=== PATIENT | female | born 1990 | race American Indian/Alaskan Native ===

== ENCOUNTER 2016-07-01 13:09 | Emergency (ER) | payer BC, MEDICAID ==
[2016-07-01 14:19] VITALS: BP 137/69
== END 2016-07-01 15:28 | disposition left against medical advice (07) ==
LOC: DL.ED 13:09
DX: Z53.21 Procedure and treatment not carried out due to patient leaving prior to being seen by health care provider (principal)

== ENCOUNTER 2016-07-01 19:06 | Emergency (ER) | payer MEDICAID ==
[2016-07-01 19:18] VITALS: BP 124/85
[2016-07-01] MEDS ORDERED: Acetaminophen/HYDROcodone 325-10 MG Tab PO ONE (20:04)
[2016-07-01] MEDS ORDERED: Acetaminophen/HYDROcodone 325-10 MG Tab ONE (20:04)
--- NOTE | 2016-07-01 20:04 | EDM.PDOC ---
ED HPI Trauma - General Chief Complaint: Lower Extremity Injury/Pain Stated Complaint: LEFT CONLEY PAIN, [id number] Time Seen by Provider: 07/01/16 20:00 Source: Reports: Patient History Limitations: Reports: No limitations - History of Present Illness INITIAL COMMENTS - FREE TEXT/NARRATIVE: injured last PM Allergies/ADRs: Allergies Penicillins Allergy (Verified 03/22/15 20:28) Swelling Home Medications: Ambulatory Orders Acetaminophen [Tylenol Extra Strength] 1,000 mg PO Q4HR PRN 04/03/14 [Confirmed 12/18/15] Ibuprofen 800 mg PO Q8HR 04/03/14 [Confirmed 12/18/15] Past Medical History - Past Health History Medical/Surgical History: Denies Medical/Surgical History HEENT History: Reports: None Cardiovascular History: Reports: None Respiratory History: Reports: None 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: Musculoskeletal History: Reports: None Neurological History: Reports: None Psychiatric History: Reports: None - Infectious Disease History Infectious Disease History: Reports: None - Past Surgical History Female Surgical History: Reports: section Social & Family History - Family History HEENT: Reports: None Cardiac: Reports: None Respiratory: Reports: None GI: Reports: None OBGYN: Reports: None Musculoskeletal: Reports: None - Tobacco Use Smoking Status *Q: Former Smoker Years of Tobacco use: 9 Packs/Tins Daily: 0.2 Used Tobacco, but Quit: Yes Month Tobacco Last Used: may Second Hand Smoke Exposure: Yes - Caffeine Use Caffeine Use: Reports: Soda - Alcohol Use Days Per Week of Alcohol Use: 0 - Recreational Drug Use Recreational Drug Use: No Recreational Drug Type: Reports: Marijuana/Hashish Recreational Drug Use Frequency: Socially Review of Systems - Review of Systems Review Of Systems: ROS reveals no pertinent complaints other than HPI. Trauma Exam - Physical Exam Exam: See Below Exam Limited By: No limitations General Appearance: Reports: alert, WD/WN, mild distress, other (tearful) Head: Reports: atraumatic Ears: Reports: hearing grossly normal Throat/Mouth: Reports: Normal voice, No airway compromise Neck: Reports: non-tender, full range of motion Respiratory Exam: Reports: no respiratory distress Cardiovascular: Reports: regular rate, rhythm GI/Abdominal: Reports: soft, non tender Extremities: Reports: pain with movement, tenderness, other (left conley mild swelling, no gross D/D, NV wnl, gait limited to pain) Neurologic: Reports: no motor/sensory deficits, alert, oriented x 3 Skin: Reports: Normal color, Warm/dry Course - Vital Signs Last Recorded V/S: Last Vital Signs Temp 36.2 C 07/01/16 19:14 Pulse 88 07/01/16 19:14 Resp 18 07/01/16 19:14 BP 124/85 07/01/16 19:14 Pulse Ox 100 07/01/16 19:14 - Orders/Labs/Meds Meds: Medications Discontinued Medications Generic Name Dose Route Start Last Admin Trade Name [place] PRN Reason Stop Dose Admin Hydrocodone Bitart/Acetaminophen Confirm 07/01/16 20:04 [facility] 325-10 Mg Administered 07/01/16 20:05 Dose 1 tab .ROUTE .STK-MED ONE - Re-Assessments/Exams Free Text/Narrative Re-Assessment/Exam: 07/01/16 20:02 results discussed with Pt. Departure - Departure Time of Disposition: 20:19 Disposition: Home, Self-Care 01 Condition: good Clinical Impression: Contusion of left tibia Instructions: Contusion, [id number] Forms: ED Department Discharge Additional Instructions: 1) elevate leg as much as possible next 48 hours 2) ice intermittently for swelling 3) follow up at clinic or recheck as needed rx togo: norco x 1
== END 2016-07-01 20:21 | disposition home or self-care (01) ==
LOC: DL.ED 19:06
DX: S80.12XA Contusion of left lower leg, initial encounter (principal); Z88.0 Allergy status to penicillin; Z87.891 Personal history of nicotine dependence; W22.8XXA Striking against or struck by other objects, initial encounter
CPT/HCPCS: 73590-LT; 99283; A9270-GY

== ENCOUNTER 2017-06-16 10:55 | Emergency (ER) | payer MEDICAID ==
[2017-06-16] MEDS ORDERED: Polymyxin B/Trimethoprim 10 ML Bottle EYEBOTH ONE (10:56)
[2017-06-16 11:10] VITALS: BP 114/67
[2017-06-16] MEDS ORDERED: Polymyxin B/Trimethoprim 10 ML Bottle ONE (11:36)
--- NOTE | 2017-06-16 11:40 | EDM.PDOC ---
Scribed by Cira Damian 06/16/17 1140 for Sushil Mars PA ED HPI GENERAL MEDICAL PROBLEM - General Chief Complaint: Eye Problems Stated Complaint: EYE PROBLEM [id number] Time Seen by Provider: 06/16/17 11:29 Source of Information: Reports: Patient, RN, RN Notes Reviewed History Limitations: Reports: No Limitations - History of Present Illness INITIAL COMMENTS - FREE TEXT/NARRATIVE: Patient states her left lower eye started hurting 5 days ago. She has had some eye drainage the last 2 nights. She has done nothing to make the symptoms better or worse. Onset: Gradual Location: Reports: Other (left eye) Quality: Reports: Ache Severity: Mild Improves with: Reports: None Worsens with: Reports: None Associated Symptoms: Reports: No Other Symptoms - Related Data Allergies Allergy/AdvReac Type Severity Reaction Status Date / Time Penicillins Allergy Swelling Verified 06/16/17 11:10 Home Meds: Home Meds Acetaminophen [Tylenol Extra Strength] 1,000 mg PO Q4HR PRN 04/03/14 [History] Ibuprofen 800 mg PO Q8HR 04/03/14 [History] Past Medical History - Past Health History Medical/Surgical History: Denies Medical/Surgical History HEENT History: Reports: None Cardiovascular History: Reports: None Respiratory History: Reports: None Gastrointestinal History: Reports: None Genitourinary History: Reports: None 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: Musculoskeletal History: Reports: None Neurological History: Reports: None Psychiatric History: Reports: None Endocrine/Metabolic History: Reports: None Hematologic History: Reports: None Immunologic History: Reports: None Oncologic (Cancer) History: Reports: None Dermatologic History: Reports: None - Infectious Disease History Infectious Disease History: Reports: None - Past Surgical History Head Surgeries/Procedures: Reports: None Female Surgical History: Reports: Section Social & Family History - Family History HEENT: Reports: None Cardiac: Reports: None Respiratory: Reports: None GI: Reports: None OBGYN: Reports: None Musculoskeletal: Reports: None - Tobacco Use Smoking Status *Q: Never Smoker Years of Tobacco use: 9 Packs/Tins Daily: 0.2 Used Tobacco, but Quit: Yes Month/Year Tobacco Last Used: may Second Hand Smoke Exposure: No - Caffeine Use Caffeine Use: Reports: Soda, Tea - Alcohol Use Days Per Week of Alcohol Use: 0 - Recreational Drug Use Recreational Drug Use: No Recreational Drug Type: Reports: Marijuana/Hashish Recreational Drug Use Frequency: Socially ED ROS GENERAL - Review of Systems Review Of Systems: ROS reveals no pertinent complaints other than HPI. ED EXAM GENERAL W FULL EYE - Physical Exam Exam: See Below Exam Limited By: No Limitations General Appearance: Alert, WD/WN, No Apparent Distress Eye Exam: Left Eye: Other (left lower stye.) Ears: Normal External Exam, Normal Canal, Hearing Grossly Normal, Normal TMs Nose: Normal Inspection, Normal Mucosa, No Blood Throat/Mouth: Normal Inspection, Normal Lips, Normal Teeth, Normal Gums, Normal Oropharynx, Normal Voice, No Airway Compromise Head: Atraumatic, Normocephalic Neck: Normal Inspection, Supple, Non-Tender, Full Range of Motion Respiratory/Chest: No Respiratory Distress, Lungs Clear, Normal Breath Sounds, No Accessory Muscle Use, Chest Non-Tender Cardiovascular: Normal Peripheral Pulses, Regular Rate, Rhythm, No Edema, No Gallop, No JVD, No Murmur, No Rub GI/Abdominal: Normal Bowel Sounds, Soft, Non-Tender, No Organomegaly, No Distention, No Abnormal Bruit, No Mass (Male) Exam: Deferred (Female) Exam: Deferred Rectal (Males) Exam: Normal Exam, Normal Rectal Tone, Prostate Normal Rectal (Female) Exam: Normal Exam, Normal Rectal Tone Back Exam: Normal Inspection, Full Range of Motion, NT Extremities: Normal Inspection, Normal Range of Motion, Non-Tender, Normal Capillary Refill, No Pedal Edema Neurological: Alert, Oriented, CN II-XII Intact, Normal Cognition, Normal Gait, Normal Reflexes, No Motor/Sensory Deficits Psychiatric: Normal Affect, Normal Mood Skin Exam: Warm, Dry, Intact, Normal Color, No Rash Lymphatic: No Adenopathy Course - Vital Signs Last Recorded V/S: Last Vital Signs Temp 36.3 C 06/16/17 11:05 Pulse 80 06/16/17 11:05 Resp 16 06/16/17 11:05 BP 114/67 06/16/17 11:05 Pulse Ox 100 06/16/17 11:05 - Orders/Labs/Meds Meds: Medications Discontinued Medications Generic Name Dose Route Start Last Admin Trade Name Freq PRN Reason Stop Dose Admin Polymyxin/Trimethoprim Sulfate Confirm 06/16/17 11:36 Polytrim Ophth Soln Administered 06/16/17 11:37 Dose 10 ml .ROUTE .STK-MED ONE Departure - Departure Time of Disposition: 11:38 Disposition: Home, Self-Care 01 Condition: Good Clinical Impression: Hordeolum externum (stye) - Discharge Information Instructions: Stye Forms: ED Department Discharge Additional Instructions: RX: Polytrim eye drops, one drop in each eye for 7 days. IF not improved follow up in clinic with your primary care facility. I have read and agree with the documentation that has been completed regarding this visit. By signing this record, I attest that the documentation was completed in my physical presence and is an accurate record of the encounter.
== END 2017-06-16 11:50 | disposition home or self-care (01) ==
LOC: DL.ED 10:55
DX: H00.025 Hordeolum internum left lower eyelid (principal); Z87.891 Personal history of nicotine dependence; Z88.0 Allergy status to penicillin
CPT/HCPCS: 99283; A9270

== ENCOUNTER 2017-07-29 18:05 | Emergency (ER) | payer MEDICAID ==
[2017-07-29 18:32] VITALS: BP 140/77
== END 2017-07-29 19:00 | disposition left against medical advice (07) ==
LOC: DL.ED 18:05
DX: Z53.21 Procedure and treatment not carried out due to patient leaving prior to being seen by health care provider (principal)

== ENCOUNTER 2017-11-15 11:00 | Emergency (ER) | payer MEDICAID ==
[2017-11-15 11:21] VITALS: BP 136/92
--- NOTE | 2017-11-15 11:35 | EDM.PDOC ---
<Tracey Thornton - Last Filed: 11/15/17 12:53> ED HPI GENERAL MEDICAL PROBLEM - General Chief Complaint: Back Pain or Injury Stated Complaint: LOWER BACK Time Seen by Provider: 11/15/17 11:23 Source of Information: Reports: Patient, RN, RN Notes Reviewed History Limitations: Reports: No Limitations - History of Present Illness INITIAL COMMENTS - FREE TEXT/NARRATIVE: Pt presents to the ER with c/o pain to the low back, radiating into the right hip, and down the right leg. Patient states her son jumped on her back and leaned backwards, hurting her back. This occurred about 2-3 days ago. Patient denies any urinary symptoms. Admits to fever and chills, nausea. Denies diarrhea , CP, or SOB. Patient denies chances of . Denies constipation or bowel issues. Patient rates pain 10/10. Pt states she has been taking Tylenol with aspirin without relief. Pain is lessened when laying down, but very painful with sitting, standing, and walking. Onset: Gradual Bilateral Lower Back Pain Score (Numeric/FACES): 10 - Related Data Allergies Allergy/AdvReac Type Severity Reaction Status Date / Time Penicillins Allergy Swelling Verified 11/15/17 11:16 Home Meds: Home Meds Acetaminophen [Tylenol Extra Strength] 1,000 mg PO Q4HR PRN 04/03/14 [History] Ibuprofen 800 mg PO Q8HR 04/03/14 [History] Past Medical History - Past Health History Medical/Surgical History: Denies Medical/Surgical History HEENT History: Reports: None Cardiovascular History: Reports: None Respiratory History: Reports: None Gastrointestinal History: Reports: None Genitourinary History: Reports: None 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: Musculoskeletal History: Reports: None Neurological History: Reports: None Psychiatric History: Reports: None Endocrine/Metabolic History: Reports: None Hematologic History: Reports: None Immunologic History: Reports: None Oncologic (Cancer) History: Reports: None Dermatologic History: Reports: None - Infectious Disease History Infectious Disease History: Reports: None - Past Surgical History Head Surgeries/Procedures: Reports: None Female Surgical History: Reports: Section Social & Family History - Family History HEENT: Reports: None Cardiac: Reports: None Respiratory: Reports: None GI: Reports: None OBGYN: Reports: None Musculoskeletal: Reports: None - Tobacco Use Smoking Status *Q: Never Smoker - Caffeine Use Caffeine Use: Reports: Coffee, Energy Drinks, Soda - Recreational Drug Use Recreational Drug Use: No ED ROS GENERAL - Review of Systems Review Of Systems: ROS reveals no pertinent complaints other than HPI. ED EXAM,LOWER BACK PAIN/INJURY - Physical Exam Exam: See Below Exam Limited By: No Limitations General Appearance: Alert, WD/WN, Moderate Distress Eye Exam: Bilateral Eye: EOMI, Normal Inspection Ears: Normal External Exam, Hearing Grossly Normal Nose: Normal Inspection Throat/Mouth: Normal Inspection, Normal Voice, No Airway Compromise Head: Atraumatic, Normocephalic Neck: Normal Inspection, Supple, Non-Tender, Full Range of Motion Respiratory/Chest: No Respiratory Distress, Lungs Clear, Normal Breath Sounds, No Accessory Muscle Use, Chest Non-Tender Cardiovascular: Normal Peripheral Pulses, Regular Rate, Rhythm, No Edema, No Gallop, No JVD, No Murmur, No Rub GI/Abdominal: Normal Bowel Sounds, Soft, Non-Tender (Female) Exam: Deferred Rectal (Female) Exam: Deferred Back Exam: Normal Inspection, CVA Tenderness (R), Decreased Range of Motion, Paraspinal Tenderness, Vertebral Tenderness. No: CVA Tenderness (L) Extremities: Normal Inspection, Normal Range of Motion, Non-Tender, No Pedal Edema, Normal Capillary Refill Neurological: Alert, Normal Mood/Affect, Normal Dorsiflexion, CN II-XII Intact, Normal Plantar Flexion, Normal Gait, Normal Reflexes, No Motor/Sensory Deficits , Oriented x 3 Psychiatric: Anxious, Tearful Skin Exam: Warm, Dry, Intact, Normal Color, No Rash Lymphatic: No Adenopathy Course - Vital Signs Last Recorded V/S: Last Vital Signs Temp 37.3 C 11/15/17 11:20 Pulse 109 H 11/15/17 11:20 Resp 16 11/15/17 11:20 BP 136/92 H 11/15/17 11:20 Pulse Ox 100 11/15/17 11:20 - Orders/Labs/Meds Labs: Laboratory Tests 11/15/17 11/15/17 Range/Units 11:17 11:17 Urine Color Yellow (YELLOW) Urine Appearance Slightly cloudy (CLEAR) Urine pH 6.0 (5.0-9.0) Ur Specific [place] 1.020 (1.005-1.030) Urine Protein Negative (NEGATIVE) Urine Glucose (UA) Negative (NEGATIVE) Urine Ketones Negative (NEGATIVE) Urine Occult Blood Negative (NEGATIVE) Urine Nitrite Negative (NEGATIVE) Urine Bilirubin Negative (NEGATIVE) Urine Urobilinogen 0.2 (0.2-1.0) mg/dL Ur Leukocyte Esterase Negative (NEGATIVE) Urine RBC 0-5 /HPF Urine WBC 0-5 (0-5/HPF) /HPF Ur Epithelial Cells Many H /HPF Urine Bacteria Many H (0-FEW/HPF) /HPF Urine Mucus Moderate H /LPF Urinalysis Comment Urine HCG, Qual Negative Meds: Medications Discontinued Medications Generic Name Dose Route Start Last Admin Trade Name Freq PRN Reason Stop Dose Admin Ketorolac Tromethamine 60 mg 11/15/17 12:04 11/15/17 12:12 Toradol IM 11/15/17 12:05 60 mg ONETIME ONE Administration Methylprednisolone Sodium Succinate 125 mg 11/15/17 12:04 11/15/17 12:12 Solu-Medrol IM 11/15/17 12:05 125 mg ONETIME ONE Administration - Radiology Interpretation Free Text/Narrative:: Lumbar spine xray: See rad report Departure - Departure Disposition: Home, Self-Care 01 Clinical Impression: Bacterial vaginosis Low back pain Qualifiers: Chronicity: acute Back pain laterality: right Sciatica presence: with sciatica Sciatica laterality: sciatica of right side Qualified Code(s): M54.41 - Lumbago with sciatica, right side - Discharge Information Instructions: Bacterial Vaginosis, [id number], Back Injury Prevention, Easy- to-Read, Back Pain, Adult, [id number] Forms: ED Department Discharge Care Plan Goals: The patient was advised of the examination, lab and x-ray results during the visit. The patient was given an antiinflammatory medication and a steroid while in the ED. The patient was given a script of antibiotics for urinary tract infection. If the patient has any additional symptoms or concerns, the patient should follow-up with her primary care facility or return to the emergency department. <Sushil Mars - Last Filed: 11/15/17 13:04> Departure - Departure Time of Disposition: 13:00 Condition: Fair - Discharge Information *PRESCRIPTION DRUG MONITORING PROGRAM REVIEWED*: Not Applicable *COPY OF PRESCRIPTION DRUG MONITORING REPORT IN PATIENT NGUYEN: Not Applicable
[2017-11-15] MEDS ORDERED: methylPREDNISolone Sodium Succinate 125 MG/2 ML SDV IM ONE (12:04)
[2017-11-15] MEDS ORDERED: Ketorolac 30 MG/ML SDV IM ONE (12:04)
== END 2017-11-15 13:09 | disposition home or self-care (01) ==
LOC: DL.ED 11:00
DX: M54.41 Lumbago with sciatica, right side (principal); N76.0 Acute vaginitis; Z88.0 Allergy status to penicillin
CPT/HCPCS: 72100; 81001; 81025; 96372; 99283; J1885; J2930

== ENCOUNTER 2018-04-30 08:27 | Emergency (ER) | payer MEDICAID ==
--- NOTE | 2018-04-30 08:39 | EDM.PDOC ---
ED HPI GENERAL MEDICAL PROBLEM - General Chief Complaint: ENT Problem Stated Complaint: THROAT HURTS [id number] Time Seen by Provider: 04/30/18 08:39 Source of Information: Reports: Patient, RN, RN Notes Reviewed History Limitations: Reports: No Limitations - History of Present Illness INITIAL COMMENTS - FREE TEXT/NARRATIVE: Pt to ER with c/o throat pain and some pain in the upper mid-chest. Patient states the throat pain has been present for 3 days. She states the pain in the chest began last night. She admits to a cough with some productive white sputum. Patient denies fever, vomiting, or diarrhea. Admits to chills, and nausea at times. Onset: Gradual Onset Date: 04/27/18 Bilateral Throat Pain Score (Numeric/FACES): 3 - Related Data Allergies Allergy/AdvReac Type Severity Reaction Status Date / Time Penicillins Allergy Swelling Verified 11/15/17 11:16 Home Meds: Home Meds Acetaminophen [Tylenol Extra Strength] 1,000 mg PO Q4HR PRN 04/03/14 [History] Ibuprofen 800 mg PO Q8HR 04/03/14 [History] Past Medical History - Past Health History Medical/Surgical History: Denies Medical/Surgical History HEENT History: Reports: None Cardiovascular History: Reports: None Respiratory History: Reports: None Gastrointestinal History: Reports: None Genitourinary History: Reports: None 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: Musculoskeletal History: Reports: None Neurological History: Reports: None Psychiatric History: Reports: None Endocrine/Metabolic History: Reports: None Hematologic History: Reports: None Immunologic History: Reports: None Oncologic (Cancer) History: Reports: None Dermatologic History: Reports: None - Infectious Disease History Infectious Disease History: Reports: None - Past Surgical History Head Surgeries/Procedures: Reports: None Female Surgical History: Reports: Section Social & Family History - Family History HEENT: Reports: None Cardiac: Reports: None Respiratory: Reports: None GI: Reports: None OBGYN: Reports: None Musculoskeletal: Reports: None - Caffeine Use Caffeine Use: Reports: Coffee, Energy Drinks, Soda ED ROS ENT - Review of Systems Review Of Systems: ROS reveals no pertinent complaints other than HPI. ED EXAM, ENT - Physical Exam Exam: See Below Exam Limited By: No Limitations General Appearance: Alert, WD/WN, No Apparent Distress Eye Exam: Bilateral Eye: EOMI, Normal Inspection Ears: Normal External Exam, Hearing Grossly Normal Nose: Normal Inspection Mouth/Throat: Hoarse Voice, Pharyngeal Erythema, Tonsillar Erythema, Tonsillar Swelling Head: Atraumatic, Normocephalic Neck: Normal Inspection, Supple, Non-Tender, Full Range of Motion Respiratory/Chest: No Respiratory Distress, Lungs Clear, Normal Breath Sounds, No Accessory Muscle Use, Chest Non-Tender Cardiovascular: Normal Peripheral Pulses, Regular Rate, Rhythm, No Edema, No Gallop, No JVD, No Murmur, No Rub GI/Abdominal: Normal Bowel Sounds, Soft, Non-Tender, No Organomegaly, No Distention, No Abnormal Bruit, No Mass (Female) Exam: Deferred Rectal (Female) Exam: Deferred Back: Normal Inspection, Full Range of Motion Extremities: Normal Inspection, Normal Range of Motion, Non-Tender, No Pedal Edema, Normal Capillary Refill Neurological: Alert, Oriented, CN II-XII Intact, Normal Cognition, Normal Gait, Normal Reflexes, No Motor/Sensory Deficits Psychiatric: Normal Mood, Flat Affect Skin: Warm, Dry, Intact, Normal Color, No Rash Lymphatic: No Adenopathy Course - Vital Signs Last Recorded V/S: Last Vital Signs Temp 97.9 F 04/30/18 08:43 Pulse 84 04/30/18 08:43 Resp 18 04/30/18 08:43 BP 136/80 04/30/18 08:43 Pulse Ox 99 04/30/18 08:43 - Orders/Labs/Meds Orders: Active Orders 24 hr Category Date Time Status CULTURE STREP A CONFIRMATION [] Stat Lab 04/30/18 08:35 Results STREP SCRN A RAPID W CULT CONF [] Stat Lab 04/30/18 08:35 Results Labs: Rapid Strep: Negative Influenza A: Negative Influenza B: Negative Departure - Departure Time of Disposition: 09:17 Disposition: Home, Self-Care 01 Condition: Fair Clinical Impression: Laryngitis Upper respiratory infection Qualifiers: URI type: unspecified viral URI Qualified Code(s): J06.9 - Acute upper respiratory infection, unspecified - Discharge Information *PRESCRIPTION DRUG MONITORING PROGRAM REVIEWED*: No *COPY OF PRESCRIPTION DRUG MONITORING REPORT IN PATIENT NGUYEN: No Instructions: Laryngitis, [id number], Upper Respiratory Infection, Adult, [id number], Cool Mist Vaporizer, Cough, Adult, [id number] Forms: ED Department Discharge Additional Instructions: Drink plenty of water May use Tylenol and/or Ibuprofen as directed for pain/fever May use over the counter mucolytics and decongestants such as Mucinex, Zyrtec, Claritin May use over the counter Robitussin for cough as directed Follow up with your primary care facility - My Orders Last 24 Hours: My Active Orders 04/30/18 08:35 CULTURE STREP A CONFIRMATION [RM] Stat STREP SCRN A RAPID W CULT CONF [] Stat - Assessment/Plan Last 24 Hours: My Active Orders 04/30/18 08:35 CULTURE STREP A CONFIRMATION [RM] Stat STREP SCRN A RAPID W CULT CONF [] Stat
[2018-04-30 08:50] VITALS: BP 136/80
== END 2018-04-30 09:35 | disposition home or self-care (01) ==
LOC: DL.ED 08:27
DX: J04.0 Acute laryngitis (principal); Z88.0 Allergy status to penicillin
CPT/HCPCS: 87081; 87430; 87804; 99282

== ENCOUNTER 2018-11-27 09:57 | Emergency (ER) | payer MEDICAID ==
[2018-11-27 10:09] VITALS: BP 130/69; PULSE 93
--- NOTE | 2018-11-27 10:12 | EDM.PDOC ---
ED HPI GENERAL MEDICAL PROBLEM - General Chief Complaint: General Stated Complaint: SWOLLEN ON RIGHT SIDE OF FACE Time Seen by Provider: 11/27/18 10:12 Source of Information: Reports: Patient, RN, RN Notes Reviewed History Limitations: Reports: No Limitations - History of Present Illness INITIAL COMMENTS - FREE TEXT/NARRATIVE: Patient to the ER with c/o right sided facial swelling, getting worse over the past few days. Pt states she has molars on the right side, upper and lower, that have been giving her pain. States she has called to make dental appts but are booked so far out, does not have a ride to [email or web address] for walk in dentist. Pt admits to chills. Rates pain 6-7/10. Onset: Gradual Right Face/Facial Pain Score (Numeric/FACES): 6 - Related Data Allergies Allergy/AdvReac Type Severity Reaction Status Date / Time Penicillins Allergy Swelling Verified 11/27/18 10:07 Home Meds: Home Meds Acetaminophen [Tylenol Extra Strength] 1,000 mg PO Q4HR PRN 04/03/14 [History] Ibuprofen 800 mg PO Q8HR 04/03/14 [History] Past Medical History - Past Health History Medical/Surgical History: Denies Medical/Surgical History HEENT History: Reports: None Cardiovascular History: Reports: None Respiratory History: Reports: None Gastrointestinal History: Reports: None Genitourinary History: Reports: None 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: Musculoskeletal History: Reports: None Neurological History: Reports: None Psychiatric History: Reports: None Endocrine/Metabolic History: Reports: None Hematologic History: Reports: None Immunologic History: Reports: None Oncologic (Cancer) History: Reports: None Dermatologic History: Reports: None - Infectious Disease History Infectious Disease History: Reports: None - Past Surgical History Head Surgeries/Procedures: Reports: None Female Surgical History: Reports: Section Social & Family History - Family History Family Medical History: Noncontributory HEENT: Reports: None Cardiac: Reports: None Respiratory: Reports: None GI: Reports: None OBGYN: Reports: None Musculoskeletal: Reports: None - Tobacco Use Smoking Status *Q: Current Every Day Smoker Years of Tobacco use: 5 Packs/Tins Daily: 0.5 - Caffeine Use Caffeine Use: Reports: Coffee, Soda - Recreational Drug Use Recreational Drug Use: No ED ROS GENERAL - Review of Systems Review Of Systems: ROS reveals no pertinent complaints other than HPI. ED EXAM, GENERAL - Physical Exam Exam: See Below Exam Limited By: No Limitations General Appearance: Alert, WD/WN, Mild Distress Eye Exam: Bilateral Eye: EOMI, Normal Inspection Ears: Normal External Exam, Normal Canal, Hearing Grossly Normal, Normal TMs Nose: Normal Inspection Throat/Mouth: Normal Voice, No Airway Compromise, Other (erythema to the gums, upper and lower, right side. dental caries noted) Head: Atraumatic, Normocephalic Neck: Normal Inspection, Supple, Non-Tender, Full Range of Motion Respiratory/Chest: No Respiratory Distress, Lungs Clear, Normal Breath Sounds, No Accessory Muscle Use, Chest Non-Tender Cardiovascular: Normal Peripheral Pulses, Regular Rate, Rhythm, No Edema, No Gallop, No JVD, No Murmur, No Rub GI/Abdominal: Normal Bowel Sounds, Soft, Non-Tender, No Organomegaly, No Distention, No Abnormal Bruit, No Mass (Female) Exam: Deferred Rectal (Female) Exam: Deferred Back Exam: Normal Inspection Extremities: Normal Inspection, Normal Range of Motion, Non-Tender, Normal Capillary Refill, No Pedal Edema Neurological: Alert, Oriented, CN II-XII Intact, Normal Cognition, Normal Gait, Normal Reflexes, No Motor/Sensory Deficits Psychiatric: Normal Affect, Normal Mood Skin Exam: Warm, Dry, Intact, Normal Color, No Rash Lymphatic: Adenopathy (right anterior cervical, right pre and post auricular) Course - Vital Signs Last Recorded V/S: Last Vital Signs Temp 97.2 F 11/27/18 10:03 Pulse 93 11/27/18 10:03 Resp 16 11/27/18 10:03 BP 130/69 11/27/18 10:03 Pulse Ox 100 11/27/18 10:03 Departure - Departure Time of Disposition: 10:20 Disposition: Home, Self-Care 01 Condition: Fair Clinical Impression: Dental abscess - Discharge Information *PRESCRIPTION DRUG MONITORING PROGRAM REVIEWED*: No *COPY OF PRESCRIPTION DRUG MONITORING REPORT IN PATIENT NGUYEN: No Instructions: Dental Abscess, [id number] Forms: ED Department Discharge Additional Instructions: RX: Clindamycin Follow up with dentistry May use Ibuprofen as directed for pain/fever May use heat pack to the area as tolerated Swish with mouthwash 2-3 times daily
== END 2018-11-27 10:26 | disposition home or self-care (01) ==
LOC: DL.ED 09:57
DX: K04.7 Periapical abscess without sinus (principal); K02.9 Dental caries, unspecified; F17.210 Nicotine dependence, cigarettes, uncomplicated; Z88.0 Allergy status to penicillin
CPT/HCPCS: 99282

== ENCOUNTER 2019-02-18 08:19 | Emergency (ER) | payer MEDICAID ==
--- NOTE | 2019-02-18 08:51 | EDM.PDOC ---
ED HPI GENERAL MEDICAL PROBLEM - General Chief Complaint: Gastrointestinal Problem Stated Complaint: THROWING UP/DIARRHEA Time Seen by Provider: 02/18/19 08:50 Source of Information: Reports: Patient, RN, RN Notes Reviewed History Limitations: Reports: No Limitations - History of Present Illness INITIAL COMMENTS - FREE TEXT/NARRATIVE: patient presents to ER with complaint of nausea, vomiting, and diarrhea. Patient states started suddenly about 10 or 10:30 PM last night, and lasted until 4/4:30 AM today. Patient states the vomiting and diarrhea has not occurred since 4:30 AM, but she is still unable to keep water down when she tries to drink. Patient denies any nausea at this time, complains of a burning in her stomach and throat. Denies fever, admits to chills. States she last had a chicken sandwich from [employer] last evening followed by popcorn. Patient's denies any chances of .denies urinary symptoms, frequency, urgency, burning with urination. Denies cough. Onset: Today, Sudden Abdominal Pain Score (Numeric/FACES): 3 - Related Data Allergies Allergy/AdvReac Type Severity Reaction Status Date / Time Penicillins Allergy Swelling Verified 02/18/19 08:25 Home Meds: Home Meds Acetaminophen [Tylenol Extra Strength] 1,000 mg PO Q4HR PRN 04/03/14 [History] Ibuprofen 800 mg PO Q8HR 04/03/14 [History] Past Medical History - Past Health History Medical/Surgical History: Denies Medical/Surgical History HEENT History: Reports: None Cardiovascular History: Reports: None Respiratory History: Reports: None Gastrointestinal History: Reports: None Genitourinary History: Reports: None 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: Musculoskeletal History: Reports: None Neurological History: Reports: None Psychiatric History: Reports: None Endocrine/Metabolic History: Reports: None Hematologic History: Reports: None Immunologic History: Reports: None Oncologic (Cancer) History: Reports: None Dermatologic History: Reports: None - Infectious Disease History Infectious Disease History: Reports: None - Past Surgical History Head Surgeries/Procedures: Reports: None Female Surgical History: Reports: Section Social & Family History - Family History Family Medical History: Noncontributory HEENT: Reports: None Cardiac: Reports: None Respiratory: Reports: None GI: Reports: None OBGYN: Reports: None Musculoskeletal: Reports: None - Tobacco Use Smoking Status *Q: Never Smoker Second Hand Smoke Exposure: No - Caffeine Use Caffeine Use: Reports: Coffee - Recreational Drug Use Recreational Drug Use: No ED ROS GENERAL - Review of Systems Review Of Systems: Comprehensive ROS is negative, except as noted in HPI. ED EXAM, GI/ABD - Physical Exam Exam: See Below Exam Limited By: No Limitations General Appearance: Alert, WD/WN, Mild Distress Eyes: Bilateral: Normal Appearance, EOMI Ears: Normal External Exam, Hearing Grossly Normal Nose: Normal Inspection Throat/Mouth: Normal Inspection, Normal Voice, No Airway Compromise Head: Atraumatic, Normocephalic Neck: Normal Inspection, Supple, Non-Tender, Full Range of Motion Respiratory/Chest: No Respiratory Distress, Lungs Clear, Normal Breath Sounds, No Accessory Muscle Use, Chest Non-Tender Cardiovascular: Normal Peripheral Pulses, Regular Rate, Rhythm, No Edema, No Gallop, No JVD, No Murmur, No Rub GI/Abdominal Exam: Normal Bowel Sounds, Soft, Tender (Female) Exam: Deferred Rectal (Female) Exam: Deferred Back Exam: Normal Inspection, Full Range of Motion, NT Extremities: Normal Inspection, Normal Range of Motion, Non-Tender, Normal Capillary Refill, No Pedal Edema Neurological: Alert, Oriented, CN II-XII Intact, Normal Cognition, Normal Gait, Normal Reflexes, No Motor/Sensory Deficits Psychiatric: Normal Affect, Normal Mood Skin Exam: Warm, Dry, Intact, Normal Color, No Rash Lymphatic: No Adenopathy Course - Vital Signs Last Recorded V/S: Last Vital Signs Temp 97.6 F 02/18/19 08:26 Pulse 110 H 02/18/19 08:26 Resp 16 02/18/19 08:26 BP 129/87 02/18/19 08:26 Pulse Ox 100 02/18/19 08:26 - Orders/Labs/Meds Orders: Active Orders 24 hr Category Date Time Status Peripheral IV Care [RC] . DIRECTED Care 02/18/19 08:58 Active Sodium Chloride 0.9% [Saline Flush] Med 02/18/19 08:58 Active 10 ml FLUSH ASDIRECTED PRN Peripheral IV Insertion Adult [OM.PC] Stat Oth 02/18/19 08:57 Ordered Medication Orders Sodium Chloride (Saline Flush) 10 ml FLUSH ASDIRECTED PRN PRN Reason: Keep Vein Open Last Admin: 02/18/19 09:25 Dose: 10 ml Labs: Laboratory Tests 02/18/19 02/18/19 Range/Units 09:14 09:55 WBC 9.7 (5.0-10.0) 10^3/uL RBC 4.96 (4.2-5.4) 10^6/uL Hgb 14.5 (12.0-16.0) g/dL Hct 44.0 (37.0-47.0) % MCV 88.7 D (80-100) fL MCH 29.2 (27.0-34.0) pg MCHC 33.0 (33.0-35.0) g/dL Plt Count 251 (150-450) 10^3/uL Neut % (Auto) 86.6 H (42.2-75.2) % Lymph % (Auto) 7.9 L (20.5-50.1) % [place] % (Auto) 4.0 (2-8) % Eos % (Auto) 1.4 (1.0-3.0) % Baso % (Auto) 0.1 (0.0-1.0) % Sodium 140 (135-145) mmol/L Potassium 3.5 L (3.6-5.0) mmol/L Chloride 108 (101-111) mmol/L Carbon Dioxide 22.0 (21.0-31.0) mmol/L Anion Gap 13.5 BUN 15 (7-18) mg/dL Creatinine 0.7 (0.6-1.3) mg/dL Est Cr Clr Drug Dosing 120.70 mL/min Estimated GFR (MDRD) > 60 BUN/Creatinine Ratio 21.42 Glucose 138 H (74-105) mg/dL Calcium 8.5 (8.4-10.2) mg/dl Total Bilirubin 0.8 (0.2-1.0) mg/dL AST 61 H (10-42) IU/L ALT 157 H (10-60) IU/L Alkaline Phosphatase 81 (42-121) IU/L Total Protein 7.4 (6.7-8.2) g/dl Albumin 4.0 (3.2-5.5) g/dl Globulin 3.4 Albumin/Globulin Ratio 1.18 Meds: Medications Generic Name Dose Route Start Last Admin Trade Name Freq PRN Reason Stop Dose Admin Sodium Chloride 10 ml 02/18/19 08:58 02/18/19 09:25 Saline Flush FLUSH 10 ml ASDIRECTED PRN Administration Keep Vein Open Discontinued Medications Generic Name Dose Route Start Last Admin Trade Name [place] PRN Reason Stop Dose Admin Al Hydroxide/Mg Hydroxide 30 ml 02/18/19 08:58 02/18/19 09:23 Gi Cocktail PO 02/18/19 08:59 30 ml ONETIME ONE Administration Sodium Chloride 1,000 mls @ 999 mls/hr 02/18/19 08:58 02/18/19 09:21 Normal Saline IV 02/18/19 09:58 999 mls/hr .BOLUS ONE Administration Ondansetron HCl 4 mg 02/18/19 08:58 02/18/19 09:23 Zofran IV 02/18/19 08:59 4 mg ONETIME ONE Administration Departure - Departure Time of Disposition: 11:07 Disposition: Home, Self-Care 01 Condition: Fair Clinical Impression: Gastroenteritis - Discharge Information *PRESCRIPTION DRUG MONITORING PROGRAM REVIEWED*: No *COPY OF PRESCRIPTION DRUG MONITORING REPORT IN PATIENT NGUYEN: No Instructions: Viral Gastroenteritis, Adult, [id number], Diarrhea, Adult, Easy -to-Read, Food Poisoning, [id number], Nausea and Vomiting, Adult, [id number] Forms: ED Department Discharge Additional Instructions: Small sips of fluids frequently take nausea medication as prescribed Follow-up with your primary care provider in the clinic to have liver enzymes rechecked. Return to the ER with any worsening of symptoms Sepsis Event Note - Evaluation Sepsis Screening Result: No Definite Risk - Focused Exam Vital Signs: Vital Signs Temp Pulse Resp BP Pulse Ox 02/18/19 08:26 97.6 F 110 H 16 129/87 100 Date Exam was Performed: 02/18/19 Time Exam was Performed: 11:06 - My Orders Last 24 Hours: My Active Orders 02/18/19 08:57 Peripheral IV Insertion Adult [OM.PC] Stat 02/18/19 08:58 Peripheral IV Care [RC] . DIRECTED Sodium Chloride 0.9% [Saline Flush] 10 ml FLUSH ASDIRECTED PRN - Assessment/Plan Last 24 Hours: My Active Orders 02/18/19 08:57 Peripheral IV Insertion Adult [OM.PC] Stat 02/18/19 08:58 Peripheral IV Care [RC] . DIRECTED Sodium Chloride 0.9% [Saline Flush] 10 ml FLUSH ASDIRECTED PRN
[2019-02-18] MEDS ORDERED: GI Cocktail Oral Solution 30 ML PO ONE (08:58)
[2019-02-18] MEDS ORDERED: Ondansetron 4 MG/2 ML SDV IV ONE (08:58)
[2019-02-18] MEDS ORDERED: Sodium Chloride 0.9% 10 ML Syringe FLUSH PRN (08:58)
[2019-02-18] MEDS ORDERED: Sodium Chloride 0.9% 1,000 ML IV ONE (08:58)
[2019-02-18 10:21] LABS: ANION GAP 13.5; CHLORIDE,CL 108 mmol/L (101-111); SODIUM,NA 140 mmol/L (135-145)
[2019-02-18 11:17] VITALS: BP 124/76; PULSE 90
== END 2019-02-18 11:20 | disposition home or self-care (01) ==
LOC: DL.ED 08:19
DX: K52.9 Noninfective gastroenteritis and colitis, unspecified (principal)
CPT/HCPCS: 36415; 80053; 85025; 96361; 96374; 99284-25; A9270-GY; J2405; J7030

== ENCOUNTER 2019-11-26 17:45 | Emergency (ER) | payer MEDICAID ==
[2019-11-26 18:08] VITALS: BP 119/90; PULSE 97
--- NOTE | 2019-11-26 18:55 | EDM.PDOC ---
ED HPI GENERAL MEDICAL PROBLEM - General Chief Complaint: Fever Stated Complaint: [id number] DON'T FEEL GOOD HEAD HURTS CHILLS Time Seen by Provider: 11/26/19 18:50 Source of Information: Reports: Patient History Limitations: Reports: No Limitations - History of Present Illness INITIAL COMMENTS - FREE TEXT/NARRATIVE: few h/o sore throat and feeling achy. denies fever but not sure. denies cough/SOB. throat hurts to swallow and talk. Generalized Pain Score (Numeric/FACES): 8 - Related Data Allergies Allergy/AdvReac Type Severity Reaction Status Date / Time Penicillins Allergy Swelling Verified 11/26/19 18:08 Home Meds: Home Meds Acetaminophen [Tylenol Extra Strength] 1,000 mg PO Q4HR PRN 04/03/14 [History] Ibuprofen 800 mg PO Q8HR 04/03/14 [History] Past Medical History - Past Health History Medical/Surgical History: Denies Medical/Surgical History HEENT History: Reports: None Cardiovascular History: Reports: None Respiratory History: Reports: None Gastrointestinal History: Reports: None Genitourinary History: Reports: None 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: Musculoskeletal History: Reports: None Neurological History: Reports: None Psychiatric History: Reports: None Endocrine/Metabolic History: Reports: None Hematologic History: Reports: None Immunologic History: Reports: None Oncologic (Cancer) History: Reports: None Dermatologic History: Reports: None - Infectious Disease History Infectious Disease History: Reports: None - Past Surgical History Head Surgeries/Procedures: Reports: None Female Surgical History: Reports: Section Social & Family History - Family History Family Medical History: Noncontributory HEENT: Reports: None Cardiac: Reports: None Respiratory: Reports: None GI: Reports: None OBGYN: Reports: None Musculoskeletal: Reports: None - Tobacco Use Smoking Status *Q: Current Every Day Smoker Years of Tobacco use: 10 Packs/Tins Daily: 0.2 - Caffeine Use Caffeine Use: Reports: Coffee - Recreational Drug Use Recreational Drug Use: No ED ROS ENT - Review of Systems Review Of Systems: Comprehensive ROS is negative, except as noted in HPI. ED EXAM, ENT - Physical Exam Exam: See Below Exam Limited By: No Limitations General Appearance: Alert, WD/WN, Mild Distress, Other (discomfort) Ears: Hearing Grossly Normal Mouth/Throat: Pharyngeal Erythema, Tonsillar Erythema, Tonsillar Swelling Head: Atraumatic Neck: Non-Tender, Full Range of Motion Respiratory/Chest: No Respiratory Distress Cardiovascular: Regular Rate, Rhythm GI/Abdominal: Soft, Non-Tender (Female) Exam: Deferred Rectal (Female) Exam: Deferred Neurological: Alert, Oriented, Normal Cognition, Normal Gait, No Motor/Sensory Deficits Psychiatric: Flat Affect Skin: Warm, Dry, Normal Color Lymphatic: No Adenopathy Course - Vital Signs Last Recorded V/S: Last Vital Signs Temp 36.8 C 11/26/19 18:06 Pulse 97 11/26/19 18:06 Resp 16 11/26/19 18:06 BP 119/90 11/26/19 18:06 Pulse Ox 98 11/26/19 18:06 - Orders/Labs/Meds Orders: Active Orders 24 hr Category Date Time Status CULTURE STREP A CONFIRMATION [RM] Stat Lab 11/26/19 18:39 Results STREP SCRN A RAPID W CULT CONF [] Stat Lab 11/26/19 18:39 Results Meds: Medications Discontinued Medications Generic Name Dose Route Start Last Admin Trade Name [place] PRN Reason Stop Dose Admin Azithromycin 500 mg 11/26/19 19:24 Zithromax PO 11/26/19 19:25 ONETIME ONE Ibuprofen 600 mg 11/26/19 19:24 Motrin PO 11/26/19 19:25 ONETIME ONE - Re-Assessments/Exams Free Text/Narrative Re-Assessment/Exam: 11/26/19 19:26 results discussed with pt. Departure - Departure Time of Disposition: 19:26 Disposition: Home, Self-Care 01 Condition: Good Clinical Impression: Tonsillopharyngitis - Discharge Information Instructions: Tonsillitis, [id number] Forms: ED Department Discharge Additional Instructions: 1) drink lots of liquids 2) avoid solid foods over the weekend 3) take tylenol or motrin for fever and discomforts 4) get drive covid test at clinic if concerned rx givne; z-lety Sepsis Event Note (ED) - Evaluation Sepsis Screening Result: No Definite Risk - Focused Exam Vital Signs: Vital Signs Temp Pulse Resp BP Pulse Ox 11/26/19 18:06 36.8 C 97 16 119/90 98 - My Orders Last 24 Hours: My Active Orders 11/26/19 18:39 CULTURE STREP A CONFIRMATION [RM] Stat STREP SCRN A RAPID W CULT CONF [] Stat - Assessment/Plan Last 24 Hours: My Active Orders 11/26/19 18:39 CULTURE STREP A CONFIRMATION [RM] Stat STREP SCRN A RAPID W CULT CONF [RM] Stat
[2019-11-26] MEDS ORDERED: Ibuprofen 600 MG Tab PO ONE (19:24)
[2019-11-26] MEDS ORDERED: Azithromycin 250 MG Tab PO ONE (19:24)
== END 2019-11-26 19:34 | disposition home or self-care (01) ==
LOC: DL.ED 17:45
DX: B00.2 Herpesviral gingivostomatitis and pharyngotonsillitis (principal); F17.210 Nicotine dependence, cigarettes, uncomplicated; Z88.0 Allergy status to penicillin
CPT/HCPCS: 87081; 87430; 99283; A9270

== ENCOUNTER 2020-01-04 16:41 | Emergency (ER) | payer MEDICAID ==
[2020-01-04 17:01] VITALS: BP 145/91; PULSE 76
--- NOTE | 2020-01-19 14:39 | EDM.PDOC ---
ED HPI GENERAL MEDICAL PROBLEM - General Chief Complaint: General Stated Complaint: AMBULANCE Time Seen by Provider: 01/04/20 17:30 Source of Information: Reports: Patient, EMS, EMS Notes Reviewed, RN, RN Notes Reviewed History Limitations: Reports: No Limitations - History of Present Illness INITIAL COMMENTS - FREE TEXT/NARRATIVE: Patient presents [facility] the ED via EMS [facility] with complaints of shortness of breath and swelling to her throat. The patient states these symptoms began about one week ago and have progressively worsened in the last 24 hours. She states she has not been tested for COVID, but has been in close proximity to individuals who have tested positive for acute COVID infection. Additionally, she attests to fatigue, headache, sore throat, cough, chest tightness, nausea, and diarrhea. She denies chest pain, palpitations, hemoptysis, vomiting, melena, or hematochezia. She states she has not taken any medications for the aforementioned symptoms. She denies use of tobacco, alcohol, or recreational drugs. 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: Musculoskeletal History: Reports: None Neurological History: Reports: None Psychiatric History: Reports: None Endocrine/Metabolic History: Reports: None Hematologic History: Reports: None Immunologic History: Reports: None Oncologic (Cancer) History: Reports: None Dermatologic History: Reports: None - Infectious Disease History Infectious Disease History: Reports: None - Past Surgical History Head Surgeries/Procedures: Reports: None Female Surgical History: Reports: Section Social & Family History - Family History Family Medical History: No Pertinent Family History HEENT: Reports: None Cardiac: Reports: None Respiratory: Reports: None GI: Reports: None OBGYN: Reports: None Musculoskeletal: Reports: None - Tobacco Use Tobacco Use Status *Q: Current Every Day Tobacco User Years of Tobacco use: 15 Packs/Tins Daily: 1 - Caffeine Use Caffeine Use: Reports: Coffee ED ROS GENERAL - Review of Systems Review Of Systems: Comprehensive ROS is negative, except as noted in HPI. ED EXAM, GENERAL - Physical Exam Exam: See Below Exam Limited By: No Limitations General Appearance: Alert, WD/WN, No Apparent Distress Eye Exam: Bilateral Eye: EOMI, Normal Inspection, PERRL Ears: Normal External Exam Ear Exam: Bilateral Ear: Auricle Normal, Canal Normal, Other (Fluid noted behind TM, bilaterally) Nose: Normal Mucosa, No Blood, Clear Rhinorrhea. No: Nasal Tenderness, Nasal Swelling Throat/Mouth: Normal Inspection, Normal Voice, No Airway Compromise, Inflammation (Erythema to posterior orophanrynx) Head: Atraumatic, Normocephalic Neck: Normal Inspection, Supple, Non-Tender, Full Range of Motion. No: Lymphadenopathy (L), Lymphadenopathy (R) Respiratory/Chest: No Respiratory Distress, Lungs Clear, Normal Breath Sounds, No Accessory Muscle Use, Chest Non-Tender Cardiovascular: Normal Peripheral Pulses, Regular Rate, Rhythm, No Edema, No Gallop, No Murmur, No Rub Back Exam: Normal Inspection, Full Range of Motion. No: CVA Tenderness (L), CVA Tenderness (R) Extremities: Normal Inspection, Normal Range of Motion, Non-Tender, No Pedal Edema, Normal Capillary Refill Neurological: Alert, Oriented, CN II-XII Intact, Normal Cognition, Normal Gait, No Motor/Sensory Deficits Psychiatric: Normal Affect, Normal Mood Skin Exam: Warm, Dry, Intact, Normal Color, No Rash. No: Ecchymosis, Erythema, Mottled, Pallor, Petechiae Course - Vital Signs Last Recorded V/S: Last Vital Signs Temp 97.1 F 01/04/20 17:00 Pulse 76 01/04/20 17:00 Resp 16 01/04/20 17:00 BP 145/91 H 01/04/20 17:00 Pulse Ox 100 01/04/20 17:00 - Orders/Labs/Meds Labs: Laboratory Tests 01/04/20 Range/Units 17:41 SARS-CoV-2 (PCR) Not detected (NOT DETECT) - Re-Assessments/Exams Free Text/Narrative Re-Assessment/Exam: 01/04/20 Following assessment by writer [place] [employer] officer presented the patient with form releasing her from her logan. She immediately packed up her belongings and left before labs could be drawn or diagnosis could be made. She did not sign an AMA form. Departure - Departure Time of Disposition: 17:55 Disposition: Against Medical Advice 07 Condition: Good Clinical Impression: Upper respiratory infection Qualifiers: URI type: unspecified viral URI Qualified Code(s): J06.9 - Acute upper respiratory infection, unspecified - Discharge Information Referrals: PCP,None [Ordering Only Provider] - Forms: ED Department Discharge Sepsis Event Note (ED) - Evaluation Sepsis Screening Result: No Definite Risk
== END 2020-01-04 17:55 | disposition left against medical advice (07) ==
LOC: DL.ED 16:41
DX: J06.9 Acute upper respiratory infection, unspecified (principal); F17.210 Nicotine dependence, cigarettes, uncomplicated; Z88.0 Allergy status to penicillin; Z20.828 Contact with and (suspected) exposure to other viral communicable diseases
CPT/HCPCS: 87081; 87430; 99284; U0002

== ENCOUNTER 2020-06-22 18:39 | Emergency (ER) | payer MEDICAID ==
[2020-06-22 19:22] VITALS: BP 156/96; PULSE 103
--- NOTE | 2020-06-22 19:23 | EDM.PDOC ---
<CowanRafael - Last Filed: 06/22/20 19:17> ED HPI GENERAL MEDICAL PROBLEM - General Chief Complaint: General Stated Complaint: TOOTH ACHE Time Seen by Provider: 06/22/20 19:17 Source of Information: Reports: Patient - History of Present Illness INITIAL COMMENTS - FREE TEXT/NARRATIVE: Cate is a 29 year old female presenting to the emergency department for tooth pain. Tooth pain started 1.5 months ago, she has been seen for this in the past, she has been on antibiotics of the tooth pain about 1 month ago. She has been trying to get into the dentist to have the tooth pulled but hasn't been able to do so, she is hoping to go tomorrow. She denies any fevers. She feels like the pain is not in her upper jaw which is new for her. She has been taking Tylenol and ibuprofen for the pain. 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: Musculoskeletal History: Reports: None Neurological History: Reports: None Psychiatric History: Reports: None Endocrine/Metabolic History: Reports: None Hematologic History: Reports: None Immunologic History: Reports: None Oncologic (Cancer) History: Reports: None Dermatologic History: Reports: None - Infectious Disease History Infectious Disease History: Reports: None - Past Surgical History Head Surgeries/Procedures: Reports: None Female Surgical History: Reports: Section Social & Family History - Family History Family Medical History: No Pertinent Family History HEENT: Reports: None Cardiac: Reports: None Respiratory: Reports: None GI: Reports: None OBGYN: Reports: None Musculoskeletal: Reports: None - Caffeine Use Caffeine Use: Reports: Coffee ED ROS GENERAL - Review of Systems Review Of Systems: Comprehensive ROS is negative, except as noted in HPI. ED EXAM, GENERAL - Physical Exam Exam: See Below Exam Limited By: No Limitations General Appearance: Alert Eye Exam: Bilateral Eye: EOMI, PERRL Throat/Mouth: Other (Pain over right maxilla, tooth pain ) Respiratory/Chest: No Respiratory Distress, Lungs Clear, Normal Breath Sounds Cardiovascular: Normal Peripheral Pulses, Regular Rate, Rhythm Departure - Departure Time of Disposition: 19:38 Disposition: Home, Self-Care 01 Clinical Impression: Dental abscess - Discharge Information *PRESCRIPTION DRUG MONITORING PROGRAM REVIEWED*: Not Applicable *COPY OF PRESCRIPTION DRUG MONITORING REPORT IN PATIENT NGUYEN: Not Applicable Instructions: Dental Abscess, [id number] Forms: ED Department Discharge Additional Instructions: Advised patient of diagnosis, return criteria discussed, can continue Tylenol and ibuprofen as needed. Prescribed Clindamycin 150 mg 3 times daily for 7 days, recommended she make an appointment with her dentist as soon as possible. <Devorah Thomas - Last Filed: 06/23/20 06:09> Course - Vital Signs Last Recorded V/S: Last Vital Signs Temp 96.4 F L 06/22/20 19:07 Pulse 103 H 06/22/20 19:07 Resp 20 06/22/20 19:07 BP 156/96 H 06/22/20 19:07 Pulse Ox 100 06/22/20 19:07 - Re-Assessments/Exams Free Text/Narrative Re-Assessment/Exam: 06/23/20 06:08 I have examined the patient. I have discussed findings and treatment plan with resident. I agree with assessment plan and documentation. Sepsis Event Note (ED) - Focused Exam Vital Signs: Vital Signs Temp Pulse Resp BP Pulse Ox 06/22/20 19:07 96.4 F L 103 H 20 156/96 H 100
== END 2020-06-22 19:55 | disposition home or self-care (01) ==
LOC: DL.ED 18:39
DX: K04.7 Periapical abscess without sinus (principal); Z88.0 Allergy status to penicillin
CPT/HCPCS: 99282; 99283

== ENCOUNTER 2020-11-26 01:52 | Emergency (ER) | payer MEDICAID ==
[2020-11-26 02:41] VITALS: BP 130/95; PULSE 98
[2020-11-26 02:43] LABS: CHLORIDE,CL 102 mmol/L (98-107); SODIUM,NA 137 mmol/L (136-145)
[2020-11-26] MEDS ORDERED: Potassium Chloride 20 MEQ in Premix Bag 1 BAG IV ONE (02:58)
[2020-11-26] MEDS ORDERED: MVI, Adult with Vitamin K 10 ML, Thiamine 100 MG, Folic Acid 1 MG in Lactated Ringers 1... IV ONE ×4 (02:58)
--- NOTE | 2020-11-26 03:09 | EDM.PDOCBH ---
ED HPI GENERAL MEDICAL PROBLEM - General Chief Complaint: Flank Pain Stated Complaint: SPLK - AMBULANCE Time Seen by Provider: 11/26/20 02:55 Source of Information: Reports: Patient, EMS, RN, RN Notes Reviewed History Limitations: Reports: Intoxication - History of Present Illness INITIAL COMMENTS - FREE TEXT/NARRATIVE: Karma is a 30 y/o female who presents to the ED via [facility] with complaints of chest pain, abdominal pain, and nausea. The patient reports she has been drinking large quantities of alcohol over the past few days. She notes her symptoms began three days ago and have waxed and waned in severity over that time. She has taken no medications for her symptoms. She denies recent illness, fever, shaking chills, chest pressure, shortness of breath, p alpitations, vomiting, constipation, or abdominal pain. She attest to smoking cigarettes and marijuana when they are available to her, she denies additional recreational drugs. Right Mid-Anterior Trunk Pain Score (Numeric/FACES): 10 - Related Data Allergies Allergy/AdvReac Type Severity Reaction Status Date / Time Penicillins Allergy Swelling Verified 01/04/20 16:58 Home Meds: Home Meds Acetaminophen [Tylenol Extra Strength] 1,000 mg PO Q4HR PRN 04/03/14 [History] Ibuprofen 800 mg PO Q8HR 04/03/14 [History] Past Medical History - Past Health History Medical/Surgical History: Denies Medical/Surgical History HEENT History: Reports: Other (See Below) Other HEENT History: Dental abscess Cardiovascular History: Reports: None Respiratory History: Reports: None Gastrointestinal History: Reports: None Genitourinary History: Reports: None 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: Musculoskeletal History: Reports: None Neurological History: Reports: None Psychiatric History: Reports: None Endocrine/Metabolic History: Reports: None Hematologic History: Reports: None Immunologic History: Reports: None Oncologic (Cancer) History: Reports: None Dermatologic History: Reports: None - Infectious Disease History Infectious Disease History: Reports: None - Past Surgical History Head Surgeries/Procedures: Reports: None HEENT Surgical History: Reports: None Female Surgical History: Reports: Section Social & Family History - Family History Family Medical History: No Pertinent Family History HEENT: Reports: None Cardiac: Reports: None Respiratory: Reports: None GI: Reports: None OBGYN: Reports: None Musculoskeletal: Reports: None - Tobacco Use Tobacco Use Status *Q: Current Every Day Tobacco User Years of Tobacco use: 10 Packs/Tins Daily: 2 - Caffeine Use Caffeine Use: Reports: Coffee ED ROS GENERAL - Review of Systems Review Of Systems: Comprehensive ROS is negative, except as noted in HPI. ED EXAM, BEHAVIORAL HEALTH - Physical Exam Exam: See Below Exam Limited By: Intoxication General Appearance: Alert, Obese, Other (Dissheveled and tearful on initial examinatoin) Eye Exam: Bilateral Eye: PERRL (4mm) Ears: Normal External Exam, Hearing Grossly Normal Nose: Normal Inspection, Normal Mucosa, No Blood Throat/Mouth: Normal Inspection, Normal Oropharynx, Normal Voice, No Airway Compromise Head: Atraumatic, Normocephalic Neck: Normal Inspection, Supple, Non-Tender, Full Range of Motion Respiratory/Chest: No Respiratory Distress, Lungs Clear, Normal Breath Sounds, No Accessory Muscle Use. No: Chest Non-Tender (Tender to palpation of chest wall, no ecchymosis, erythema, or crepitus), Crackles, Rales, Rhonchi, Wheezing, Stridor, Pleural Rub, Retractions, Splinting Cardiovascular: Normal Peripheral Pulses, Regular Rate, Rhythm, No Edema, No Gallop, No JVD, No Murmur, No Rub (Female) Exam: Deferred Rectal (Female) Exam: Deferred Back Exam: Normal Inspection, Full Range of Motion. No: CVA Tenderness (L), CVA Tenderness (R) Extremities: Normal Inspection, Normal Range of Motion, Normal Capillary Refill Neurological: Alert, Opens Eyes to Commands, Withdraws to Pain. No: Memory Loss Remote Events, Memory Loss Recent Events Psychiatric: Alert, Tearful, Poor Eye Contact. No: Uncooperative, Suicidal Plan, Suicidal Thoughts, Auditory Hallucinations, Visual Hallucinations, Grandiose Thoughts, Pressured Speech, Paranoid Thoughts, Threatening Behavior Skin Exam: Warm, Dry, Intact, Normal color, No rash. No: Cyanosis, Ecchymosis, Erythema, Jaundice, Mottled, Pallor, Petechiae #1 Interpretation EKG Date: 11/26/20 Time: 02:12 Rhythm: Other (Sinus tachycardia) Rate (Beats/Min): 103 Jet: Normal P-Wave: Present QRS: Normal ST-T: Normal QT: Normal NM/PQ Interval: 0.14 Comparison: NA - No Prior EKG EKG Interpretation Comments: ST; q-wave in III; No evidence of acute myocardial ischemia COURSE, BEHAVIORAL HEALTH COMP - Course Vital Signs: Last Vital Signs Temp 97.1 F 11/26/20 02:38 Pulse 98 11/26/20 02:38 Resp 22 H 11/26/20 02:38 BP 130/95 H 11/26/20 02:38 Pulse Ox 98 11/26/20 02:38 Orders, Labs, Meds: Active Orders 24 hr Category Date Time Status CULTURE URINE [RM] Stat Lab 11/26/20 04:36 Received Laboratory Tests 11/26/20 11/26/20 11/26/20 Range/Units 02:07 02:07 02:07 WBC 13.7 H (5.0-10.0) 10^3/uL RBC 5.08 (4.2-5.4) 10^6/uL Hgb 14.2 (12.0-16.0) g/dL Hct 43.6 (37.0-47.0) % MCV 85.8 (80-100) fL MCH 28.0 (27.0-34.0) pg MCHC 32.6 L (33.0-35.0) g/dL Plt Count 389 D (150-450) 10^3/uL Neut % (Auto) 63.0 (42.2-75.2) % Lymph % (Auto) 29.5 (20.5-50.1) % [place] % (Auto) 5.3 (2-8) % Eos % (Auto) 2.0 (1.0-3.0) % Baso % (Auto) 0.2 (0.0-1.0) % Sodium 137 (136-145) mmol/L Potassium 3.0 L (3.5-5.1) mmol/L Chloride 102 (98-107) mmol/L Carbon Dioxide 24 (21-32) mmol/L Anion Gap 14.0 H (7-13) mEq/L BUN 9 (7-18) mg/dL Creatinine 0.76 (0.55-1.02) mg/dL Est Cr Clr Drug Dosing 105.26 mL/min Estimated GFR (MDRD) > 60 BUN/Creatinine Ratio 11.8 (No establ ref range) Glucose 132 H (70-99) mg/dL Calcium 8.2 L (8.5-10.1) mg/dL Magnesium 2.2 (1.8-2.4) mg/dL Total Bilirubin 0.3 (0.2-1.0) mg/dL AST 72 H (15-37) U/L ALT 76 H (14-59) U/L Alkaline Phosphatase 151 H (46-116) U/L Troponin I High Sens < 4 (<=51) pg/mL C-Reactive Protein 1.1 H (0.0-0.9) mg/dL B-Natriuretic Peptide 6 (0-100) pg/ml Total Protein 8.0 (6.4-8.2) g/dL Albumin 3.4 (3.4-5.0) g/dL Globulin 4.6 Albumin/Globulin Ratio 0.7 Amylase 41 (25-115) U/L Lipase 162 (73-393) U/L Urine Color (YELLOW) Urine Appearance (CLEAR) Urine pH (5.0-9.0) Ur Specific [place] (1.005-1.030) Urine Protein (NEGATIVE) Urine Glucose (UA) (NEGATIVE) Urine Ketones (NEGATIVE) Urine Occult Blood (NEGATIVE) Urine Nitrite (NEGATIVE) Urine Bilirubin (NEGATIVE) Urine Urobilinogen (0.2-1.0) mg/dL Ur Leukocyte Esterase (NEGATIVE) Urine RBC (0-5) /HPF Urine WBC (0-5/HPF) /HPF Ur Epithelial Cells (NOT SEEN) /HPF Amorphous Sediment (NOT SEEN) /HPF Urine Bacteria (0-FEW/HPF) /HPF Urine Mucus (NOT SEEN) /LPF Urine Opiates Screen (NEGATIVE) Ur Oxycodone Screen (NEGATIVE) Urine Methadone Screen (NEGATIVE) Ur Barbiturates Screen (NEGATIVE) U Tricyclic Antidepress (NEGATIVE) Ur Phencyclidine Scrn (NEGATIVE) Ur Amphetamine Screen (NEGATIVE) U Methamphetamines Scrn (NEGATIVE) Urine MDMA Screen (NEGATIVE) U Benzodiazepines Scrn (NEGATIVE) Urine Cocaine Screen (NEGATIVE) U Marijuana (THC) Screen (NEGATIVE) Ethyl Alcohol (0) mg/dL 11/26/20 11/26/20 11/26/20 Range/Units 02:07 04:36 04:36 WBC (5.0-10.0) 10^3/uL RBC (4.2-5.4) 10^6/uL Hgb (12.0-16.0) g/dL Hct (37.0-47.0) % MCV (80-100) fL MCH (27.0-34.0) pg MCHC (33.0-35.0) g/dL Plt Count (150-450) 10^3/uL Neut % (Auto) (42.2-75.2) % Lymph % (Auto) (20.5-50.1) % [place] % (Auto) (2-8) % Eos % (Auto) (1.0-3.0) % Baso % (Auto) (0.0-1.0) % Sodium (136-145) mmol/L Potassium (3.5-5.1) mmol/L Chloride (98-107) mmol/L Carbon Dioxide (21-32) mmol/L Anion Gap (7-13) mEq/L BUN (7-18) mg/dL Creatinine (0.55-1.02) mg/dL Est Cr Clr Drug Dosing mL/min Estimated GFR (MDRD) BUN/Creatinine Ratio (No establ ref range) Glucose (70-99) mg/dL Calcium (8.5-10.1) mg/dL Magnesium (1.8-2.4) mg/dL Total Bilirubin (0.2-1.0) mg/dL AST (15-37) U/L ALT (14-59) U/L Alkaline Phosphatase (46-116) U/L Troponin I High Sens (<=51) pg/mL C-Reactive Protein (0.0-0.9) mg/dL B-Natriuretic Peptide (0-100) pg/ml Total Protein (6.4-8.2) g/dL Albumin (3.4-5.0) g/dL Globulin Albumin/Globulin Ratio Amylase (25-115) U/L Lipase (73-393) U/L Urine Color Yellow (YELLOW) Urine Appearance Slightly cloudy (CLEAR) Urine pH 6.0 (5.0-9.0) Ur Specific [place] 1.010 (1.005-1.030) Urine Protein Negative (NEGATIVE) Urine Glucose (UA) Negative (NEGATIVE) Urine Ketones Negative (NEGATIVE) Urine Occult Blood Negative (NEGATIVE) Urine Nitrite Negative (NEGATIVE) Urine Bilirubin Negative (NEGATIVE) Urine Urobilinogen 0.2 (0.2-1.0) mg/dL Ur Leukocyte Esterase Trace H (NEGATIVE) Urine RBC 0-5 (0-5) /HPF Urine WBC 10-20 H (0-5/HPF) /HPF Ur Epithelial Cells Moderate H (NOT SEEN) /HPF Amorphous Sediment Moderate H (NOT SEEN) /HPF Urine Bacteria Moderate H (0-FEW/HPF) /HPF Urine Mucus Few H (NOT SEEN) /LPF Urine Opiates Screen Negative (NEGATIVE) Ur Oxycodone Screen Negative (NEGATIVE) Urine Methadone Screen Negative (NEGATIVE) Ur Barbiturates Screen Negative (NEGATIVE) U Tricyclic Antidepress Negative (NEGATIVE) Ur Phencyclidine Scrn Negative (NEGATIVE) Ur Amphetamine Screen Negative (NEGATIVE) U Methamphetamines Scrn Positive H (NEGATIVE) Urine MDMA Screen Negative (NEGATIVE) U Benzodiazepines Scrn Negative (NEGATIVE) Urine Cocaine Screen Negative (NEGATIVE) U Marijuana (THC) Screen Negative (NEGATIVE) Ethyl Alcohol 293 (0) mg/dL Medications Discontinued Medications Generic Name Dose Route Start Last Admin Trade Name Freq PRN Reason Stop Dose Admin Multivitamins/Minerals 10 ml/ 1,011.2 mls @ 999 mls/hr 11/26/20 02:58 11/26/20 03:18 Thiamine HCl 100 mg/ Folic IV 11/26/20 03:58 999 mls/hr Acid 1 mg/ Lactated Ringer's .BOLUS ONE Administration Potassium Chloride 20 meq/ 100 mls @ 50 mls/hr 11/26/20 02:58 11/26/20 03:19 Premix IV 11/26/20 04:57 50 mls/hr ONETIME ONE Administration Re-Assessment/Re-Exam: 11/26/20 Banana Bag initiated while labs pending. Findings of examination and lab work reviewed with patient. Will treat hypokalemia with KCl 20mEq IVPB while Banana Bag infuses. Patient verbalized understanding and agreement with the plan of care. Patient resting calmly with eyes closed. Nursing Instructor again reviewed labs with patient. Patient instructed to follow up with her PCP in 3-5 days. Red flag si gns and symptoms which would warrant reevaluation reviewed. Patient verbalized understanding and agreement with the plan of care. Departure - Departure Time of Disposition: 06:06 Disposition: Home, Self-Care 01 Condition: Fair Clinical Impression: Methamphetamine use, Elevated liver function tests, Hypokalemia, Atypical chest pain Acute alcohol intoxication Qualifiers: Complication of substance-induced condition: uncomplicated Qualified Code(s): F10.920 - Alcohol use, unspecified with intoxication, uncomplicated - Discharge Information *PRESCRIPTION DRUG MONITORING PROGRAM REVIEWED*: Not Applicable *COPY OF PRESCRIPTION DRUG MONITORING REPORT IN PATIENT NGUYEN: Not Applicable Instructions: Nonspecific Chest Pain, Adult, Alcohol Intoxication, Methamphetamines Use Disorder Forms: ED Department Discharge Additional Instructions: 1.) Follow up with your primary care provider in 3-5 days regarding today's visit. 2.) Eat potassium-rich foods, including broccoli, watermelon, bananas, etc... 3.) Refrain from drinking alcohol or using methamphetamines. 4.) Return to the emergency department with any worsening or persistent symptoms despite medications. Sepsis Event Note (ED) - Focused Exam Vital Signs: Vital Signs Temp Pulse Resp BP Pulse Ox 11/26/20 02:38 97.1 F 98 22 H 130/95 H 98 - My Orders Last 24 Hours: My Active Orders 11/26/20 04:36 CULTURE URINE [RM] Stat - Assessment/Plan Last 24 Hours: My Active Orders 11/26/20 04:36 CULTURE URINE [RM] Stat
[2020-11-26 04:45] LABS: AMPHETAMINES,URINE NEGATIVE (NEGATIVE); BARBITURATES,URINE NEGATIVE (NEGATIVE); BENZODIAZEPINE,URINE NEGATIVE (NEGATIVE); MDMA (ECSTASY), URINE NEGATIVE (NEGATIVE); METHADONE,URINE NEGATIVE (NEGATIVE); METHAMPHETAMINES,URINE POSITIVE (NEGATIVE); OPIATES,URINE NEGATIVE (NEGATIVE); OXYCODONE,URINE NEGATIVE (NEGATIVE); PHENCYCLIDINE,URINE NEGATIVE (NEGATIVE); TCA,URINE NEGATIVE (NEGATIVE)
== END 2020-11-26 06:09 | disposition home or self-care (01) ==
LOC: DL.ED 01:52
DX: R07.89 Other chest pain (principal); F10.120 Alcohol abuse with intoxication, uncomplicated; E87.6 Hypokalemia; F15.90 Other stimulant use, unspecified, uncomplicated; R79.89 Other specified abnormal findings of blood chemistry; R00.0 Tachycardia, unspecified; F17.210 Nicotine dependence, cigarettes, uncomplicated; E66.9 Obesity, unspecified; Z68.42 Body mass index [BMI] 45.0-49.9, adult; Z88.0 Allergy status to penicillin; Y90.8 Blood alcohol level of 240 mg/100 ml or more
CPT/HCPCS: 36415; 80053; 80305; 80307; 81001; 82150; 83690; 83735; 83880; 84484; 85025; 86140; 87086; 93005; 96365; 96367; 99285; J3411; J3480; J7120; J3490

== ENCOUNTER 2021-01-15 15:57 | Emergency (ER) | payer MEDICAID ==
[2021-01-15 16:16] VITALS: BP 127/86; PULSE 94
[2021-01-15 17:03] LABS: CORONAVIRUS COVID-19 NAA NEGATIVE (NEGATIVE)
[2021-01-15] MEDS ORDERED: Acetaminophen 500 MG Tab PO ONE (17:31)
[2021-01-15] MEDS ORDERED: Metoclopramide 10 MG Tab PO ONE (17:31)
== END 2021-01-15 17:45 | disposition home or self-care (01) ==
LOC: DL.ED 15:57
DX: K52.9 Noninfective gastroenteritis and colitis, unspecified (principal); Z88.0 Allergy status to penicillin; Z20.822 Contact with and (suspected) exposure to COVID-19
CPT/HCPCS: 0240U; 99284; A9270; 99283

== ENCOUNTER 2021-03-26 19:22 | Emergency (ER) | payer MEDICAID ==
[2021-03-26 20:45] LABS: CORONAVIRUS COVID-19 NAA NEGATIVE (NEGATIVE)
== END 2021-03-26 21:13 | disposition left against medical advice (07) ==
LOC: DL.ED 19:22
DX: Z53.21 Procedure and treatment not carried out due to patient leaving prior to being seen by health care provider (principal)
CPT/HCPCS: 0240U

== ENCOUNTER 2021-04-26 17:08 | Emergency (ER) | payer MEDICAID ==
[2021-04-26 19:58] VITALS: BP 140/112; PULSE 107
[2021-04-26] MEDS ORDERED: Ciprofloxacin 500 MG Tab PO ONE (19:58)
[2021-04-26] MEDS ORDERED: Phenazopyridine 95 MG Tab PO ONE (19:58)
== END 2021-04-26 20:17 | disposition home or self-care (01) ==
LOC: DL.ED 17:08
DX: N39.0 Urinary tract infection, site not specified (principal); Z88.0 Allergy status to penicillin
CPT/HCPCS: 81001; 87086; 87088; 87186; 99283; A9270-GY

== ENCOUNTER 2021-08-15 23:52 | Emergency (ER) | payer MEDICAID ==
[2021-08-16] MEDS ORDERED: LORazepam 2 MG/ML SDV IVPUSH ONE ×4 (00:20→01:48)
[2021-08-16 01:02] LABS: ANION GAP 14.4 mEq/L (7-13); CHLORIDE,CL 104 mmol/L (98-107); ESTIMATED GFR 78 mL/min (>=60); SODIUM,NA 138 mmol/L (136-145)
[2021-08-16] MEDS ORDERED: fentaNYL 100 MCG/2 ML SDV IVPUSH ONE ×2 (01:31→02:36)
[2021-08-16 01:32] VITALS: BP 140/113; PULSE 157
[2021-08-16 02:03] LABS: AMPHETAMINES,URINE POSITIVE (NEGATIVE); BARBITURATES,URINE NEGATIVE (NEGATIVE); BENZODIAZEPINE,URINE NEGATIVE (NEGATIVE); MDMA (ECSTASY), URINE NEGATIVE (NEGATIVE); METHADONE,URINE NEGATIVE (NEGATIVE); METHAMPHETAMINES,URINE POSITIVE (NEGATIVE); OPIATES,URINE NEGATIVE (NEGATIVE); OXYCODONE,URINE NEGATIVE (NEGATIVE); PHENCYCLIDINE,URINE NEGATIVE (NEGATIVE); TCA,URINE NEGATIVE (NEGATIVE)
[2021-08-16] MEDS ORDERED: fentaNYL 100 MCG/2 ML SDV ONE (02:22)
== END 2021-08-16 09:03 | disposition home or self-care (01) ==
LOC: DL.ED 23:52
DX: S20.411A Abrasion of right back wall of thorax, initial encounter (principal); F10.10 Alcohol abuse, uncomplicated; F15.90 Other stimulant use, unspecified, uncomplicated; F17.210 Nicotine dependence, cigarettes, uncomplicated; Z88.0 Allergy status to penicillin; Y04.0XXA Assault by unarmed brawl or fight, initial encounter; Y90.8 Blood alcohol level of 240 mg/100 ml or more
CPT/HCPCS: 36415; 73120-RT; 73590-LT; 80053; 80305-QW; 80307; 81003; 84703; 85025; 96374; 96375; 96376; 99283; 99284-25; J2060; J3010